=== PATIENT | female | born 1950 | race Hispanic/Latino ===

== ENCOUNTER 2022-06-04 15:56 | Inpatient (IN) | payer OTHER ==
[~2022-06-04] VITALS: Ht 167.6 cm; Wt 77.1 kg
[~2022-06-04 15:56] MED LIST: ASPIRIN CHEW81 MG PO; ATORVASTATIN CA10 MG PO; CEFTRIAXONE1 GM IV; CLOPIDOGREL75 MG PO; FUROSEMIDE40 MG PO; LOPRESSOR25 MG PO; LOSARTAN POTASS25 MG PO; NITROGLYCERIN0.4 MG SL; TOPROL XL50 MG PO; VANCOMYCIN HCL1 GM IV; [UNRECOGNIZED DRUG - REMARK]
[2022-06-04 20:27] VITALS: BP 138/78
[2022-06-04 20:29] VITALS: BP 138/78
[2022-06-04] MEDS: Morphine 4mg INJECTION 4 MG/ML INJ IV PRN (20:49)
[2022-06-04] MEDS: ONDANSETRON HCL INJ 2MG/ML 2ML 2 MG/ML VIAL IV PRN (20:49)
[2022-06-04] MEDS: DEXTROSE 5%/0.45% SOD CHL 1,000 ML IV SCH (20:50)
[2022-06-04 21:34] VITALS: BP 138/78
[2022-06-04] MEDS: ATORVASTATIN 10 MG TAB PO SCH (21:45)
[2022-06-04] MEDS: LOSARTAN POTASSIUM 25 MG TAB PO SCH (21:46)
[2022-06-04] MEDS: METOPROLOL SUCCINATE 50 MG TAB XL PO SCH (21:46)
[2022-06-04 21:53] VITALS: BP 138/78
[2022-06-04] MEDS: HYDROCODONE/APAP 10MG-325MG TAB PO PRN (23:11)
[2022-06-05] VITALS (10 sets, daily range): BP systolic 132–146; BP diastolic 59–77
[2022-06-05 01:35] LABS: BASOPHILS % 0.2 % (0.0-1.0); EOSINOPHILS % 0.1 % (0.0-6.0); HEMATOCRIT 35.7 % (34.2-44.1); HEMOGLOBIN 11.9 g/dL (12.0-16.0); LYMPHOCYTES # (AUTO) 1.7 (1.0-3.2); LYMPHOCYTES % 16.8 % (18.0-39.1); MEAN CORPUSCULAR HEMOGLOBIN 32.4 pg (28-32); MEAN CORPUSCULAR HGB CONC 33.3 g/dL (31-35); MEAN CORPUSCULAR VOLUME 97.3 fL (81-99); MONOCYTES # (AUTO) 0.7 (0.2-0.8); MONOCYTES % 6.9 % (4.4-11.3); NEUTROPHILS # (AUTO) 7.8 (2.1-6.9); NEUTROPHILS % 75.7 % (38.7-80.0); PLATELET COUNT 324 x10e3/uL (140-360); RED BLOOD COUNT 3.67 x10e6/uL (3.6-5.1); RED CELL DISTRIBUTION WIDTH 13.1 % (11.7-14.4)
[2022-06-05 01:47] LABS: INR 1.02; PROTHROMBIN TIME 13.9 seconds (11.9-14.5)
[2022-06-05 01:54] LABS: ALBUMIN 3.4 g/dL (3.5-5.0); ALBUMIN/GLOBULIN RATIO 0.9 (0.8-2.0); ANION GAP 14.3 mmol/L (8-16); CALCIUM 8.9 mg/dL (8.4-10.2); CREATININE, SERUM 0.8 mg/dL (0.57-1.11); POTASSIUM 4.3 mmol/L (3.5-5.1)
[2022-06-05] MEDS: ONDANSETRON HCL INJ 2MG/ML 2ML 2 MG/ML VIAL IV PRN ×2 (02:12→08:12)
[2022-06-05] MEDS: Morphine 4mg INJECTION 4 MG/ML INJ IV PRN ×2 (02:13→08:12)
[2022-06-05] MEDS ORDERED: ASPIRIN81 MG PO (06:52)
[2022-06-05 07:02] LABS: HEMOGLOBIN 11.9 g/dL (12.0-16.0); MEAN CORPUSCULAR HEMOGLOBIN 32.3 pg (28-32); MEAN CORPUSCULAR HGB CONC 33.1 g/dL (31-35); MEAN CORPUSCULAR VOLUME 97.8 fL (81-99); PLATELET COUNT 311 x10e3/uL (140-360); RED BLOOD COUNT 3.68 x10e6/uL (3.6-5.1)
[2022-06-05 07:23] LABS: ANION GAP 15.1 mmol/L (8-16); CALCIUM 8.8 mg/dL (8.4-10.2); CREATININE, SERUM 0.75 mg/dL (0.57-1.11); POTASSIUM 4.1 mmol/L (3.5-5.1)
[2022-06-05 07:38] LABS: INR 0.94; PROTHROMBIN TIME 13.1 seconds (11.9-14.5)
[2022-06-05 07:49] LABS: CLARITY,URINE CLEAR (CLEAR); COLOR,URINE YELLOW (YELLOW); KETONES,URINE TRACE (NEGATIVE); LEUKOCYTE ESTERASE ,URINE NEGATIVE (NEGATIVE); NITRITE,URINE NEGATIVE (NEGATIVE); PROTEIN,URINE DIPSTICK NEGATIVE (NEGATIVE); URINE UROBILINOGEN 0.2 mg/dL (0.2 - 1)
[2022-06-05 07:51] LABS: BACTERIA,URINE FEW /HPF; EPITHELIAL CELLS,URINE RARE /LPF; RBC,URINE 0-5 /HPF (0-5); WBC,URINE (MAN) 0-5 /HPF (0-5)
[2022-06-05] MEDS: DEXTROSE 5%/0.45% SOD CHL 1,000 ML IV SCH (08:13)
[2022-06-05] MEDS: METOPROLOL SUCCINATE 50 MG TAB XL PO SCH ×2 (09:00→21:37)
[2022-06-05 11:03] LABS: LYMPHOCYTES % (MANUAL) 23 % (19-48); MONOCYTES % (MANUAL) 6 % (3.4-9.0); NEUTROPHILS % (MANUAL) 70 % (40-74); PLATELET ESTIMATE ADEQUATE; PLATELET MORPHOLOGY COMMENT NORMAL
[2022-06-05] MEDS ORDERED: SUCCINYLCHOLINE CHLORIDE 20 MG/ML 10ML VIAL ONE (12:31)
[2022-06-05] MEDS ORDERED: PROPOFOL IV EMULSION 10 MG/ML 20 ML VIAL ONE (12:31)
[2022-06-05] MEDS ORDERED: POVIDONE IODINE 0.05% 0.05 % ML PO ONE (12:31)
[2022-06-05] MEDS ORDERED: SEVOFLURANE INHAL SOLN 250 ML PEN BTL ONE (12:31)
[2022-06-05] MEDS ORDERED: KETOROLAC TROMETHAMINE 30 MG/ML VIAL ONE (12:31)
[2022-06-05] MEDS ORDERED: LIDOCAINE HCL 2% LOCAL INJ 5 ML SDV VIAL INJ ONE (12:31)
[2022-06-05] MEDS ORDERED: ONDANSETRON HCL INJ 2MG/ML 2ML 2 MG/ML VIAL ONE (12:31)
[2022-06-05] MEDS ORDERED: MIDAZOLAM HCL 2 MG/2 ML VIAL ONE (13:04)
[2022-06-05] MEDS ORDERED: FENTANYL CITRATE/PF 100MCG/2 ML INJ ONE (13:04)
[2022-06-05] MEDS ORDERED: TRANEXAMIC ACID 10 ML ONE (13:28)
[2022-06-05] MEDS ORDERED: Vancomycin IV 1 GM VIAL ONE (13:28)
[2022-06-05] MEDS ORDERED: Vancomycin IV 0 MG ONE (13:28)
[2022-06-05] MEDS ORDERED: BUPIVACAINE HCL 0.5% INJ 30 ML VIAL INJ ONE (13:51)
[2022-06-05] MEDS ORDERED: ROPIVACAINE 246.25 MG, EPINEPHRINE HCL 1:1000 1ML 0.5 MG, CLONIDINE HCL 0.08 MG, KETORO... INJ ONE ×5 (14:00)
[2022-06-05] MEDS ORDERED: CEFAZOLIN SODIUM 2 GM ONE (14:20)
[2022-06-05] MEDS ORDERED: ACETAMINOPHEN 1000 MG/100 ML 100 ML IV ONE (14:58)
[2022-06-05] MEDS ORDERED: ONDANSETRON HCL INJ 2MG/ML 2ML 2 MG/ML VIAL IV PRN (16:30)
[2022-06-05] MEDS ORDERED: DOCUSATE SODIUM 100 MG CAP PO PRN (16:30)
[2022-06-05] MEDS ORDERED: HYDROCODONE/APAP 5MG-325MG TAB PO PRN (16:30)
[2022-06-05 16:54] LABS: BASOPHILS % 0.2 % (0.0-1.0); EOSINOPHILS # (AUTO) 0.1 (0.0-0.4); EOSINOPHILS % 0.3 % (0.0-6.0); HEMATOCRIT 34.9 % (34.2-44.1); HEMOGLOBIN 11.5 g/dL (12.0-16.0); LYMPHOCYTES # (AUTO) 2.6 (1.0-3.2); LYMPHOCYTES % 12.5 % (18.0-39.1); MEAN CORPUSCULAR HEMOGLOBIN 32.5 pg (28-32); MEAN CORPUSCULAR VOLUME 98.6 fL (81-99); MONOCYTES # (AUTO) 1.1 (0.2-0.8); MONOCYTES % 5.1 % (4.4-11.3); NEUTROPHILS # (AUTO) 16.8 (2.1-6.9); NEUTROPHILS % 81.4 % (38.7-80.0); PLATELET COUNT 306 x10e3/uL (140-360); RED BLOOD COUNT 3.54 x10e6/uL (3.6-5.1); RED CELL DISTRIBUTION WIDTH 12.9 % (11.7-14.4)
[2022-06-05] MEDS: CELECOXIB 100 MG CAP PO SCH (17:00)
[2022-06-05 17:14] LABS: ALBUMIN/GLOBULIN RATIO 0.9 (0.8-2.0); ANION GAP 14.1 mmol/L (8-16); CALCIUM 8.3 mg/dL (8.4-10.2); CREATININE, SERUM 0.74 mg/dL (0.57-1.11); POTASSIUM 4.1 mmol/L (3.5-5.1)
[2022-06-05] MEDS: ACETAMINOPHEN 1000 MG/100 ML IV SCH (18:00)
[2022-06-05] MEDS: LOSARTAN POTASSIUM 25 MG TAB PO SCH (21:38)
[2022-06-05] MEDS: ATORVASTATIN 10 MG TAB PO SCH (21:38)
[2022-06-06] MEDS: ACETAMINOPHEN 1000 MG/100 ML IV SCH ×3 (00:39→12:36)
[2022-06-06 04:00] VITALS: BP 130/65
[2022-06-06] MEDS: DEXTROSE 5%/0.45% SOD CHL 1,000 ML IV SCH ×2 (04:37→17:18)
[2022-06-06 05:20] LABS: BASOPHILS % 0.1 % (0.0-1.0); EOSINOPHILS # (AUTO) 0.1 (0.0-0.4); EOSINOPHILS % 0.7 % (0.0-6.0); HEMATOCRIT 32.8 % (34.2-44.1); HEMOGLOBIN 10.7 g/dL (12.0-16.0); LYMPHOCYTES # (AUTO) 1.4 (1.0-3.2); LYMPHOCYTES % 13.1 % (18.0-39.1); MEAN CORPUSCULAR HEMOGLOBIN 32.5 pg (28-32); MEAN CORPUSCULAR HGB CONC 32.6 g/dL (31-35); MEAN CORPUSCULAR VOLUME 99.7 fL (81-99); MONOCYTES % 9.6 % (4.4-11.3); NEUTROPHILS # (AUTO) 8.3 (2.1-6.9); NEUTROPHILS % 75.9 % (38.7-80.0); PLATELET COUNT 290 x10e3/uL (140-360); RED BLOOD COUNT 3.29 x10e6/uL (3.6-5.1); RED CELL DISTRIBUTION WIDTH 12.8 % (11.7-14.4)
[2022-06-06 05:50] LABS: ANION GAP 12.3 mmol/L (8-16); CREATININE, SERUM 0.7 mg/dL (0.57-1.11); POTASSIUM 4.3 mmol/L (3.5-5.1)
[2022-06-06] MEDS: HYDROCODONE/APAP 10MG-325MG TAB PO PRN ×2 (08:21→16:41)
[2022-06-06] MEDS: CELECOXIB 100 MG CAP PO SCH ×2 (08:22→16:41)
[2022-06-06] MEDS: METOPROLOL SUCCINATE 50 MG TAB XL PO SCH ×2 (08:22→20:54)
[2022-06-06 08:26] VITALS: BP 122/67
[2022-06-06 12:03] VITALS: BP 121/59
[2022-06-06] MEDS: ONDANSETRON HCL INJ 2MG/ML 2ML 2 MG/ML VIAL IV PRN (13:18)
[2022-06-06] MEDS: Morphine 4mg INJECTION 4 MG/ML INJ IV PRN (13:19)
[2022-06-06] MEDS ORDERED: ACETAMINOPHEN 1000 MG/100 ML IV PRN (16:30)
[2022-06-06 20:04] VITALS: BP 128/69
[2022-06-06 20:05] VITALS: BP 128/69
[2022-06-06] MEDS: ATORVASTATIN 10 MG TAB PO SCH (20:53)
[2022-06-06] MEDS: LOSARTAN POTASSIUM 25 MG TAB PO SCH (20:53)
[2022-06-07 00:25] VITALS: BP 137/61
[2022-06-07 04:00] VITALS: BP 148/67
[2022-06-07 05:36] LABS: BASOPHILS % 0.2 % (0.0-1.0); EOSINOPHILS # (AUTO) 0.1 (0.0-0.4); HEMATOCRIT 32.7 % (34.2-44.1); HEMOGLOBIN 10.5 g/dL (12.0-16.0); LYMPHOCYTES # (AUTO) 1.6 (1.0-3.2); LYMPHOCYTES % 15.4 % (18.0-39.1); MEAN CORPUSCULAR HGB CONC 32.1 g/dL (31-35); MEAN CORPUSCULAR VOLUME 102.8 fL (81-99); NEUTROPHILS # (AUTO) 7.6 (2.1-6.9); NEUTROPHILS % 73.1 % (38.7-80.0); PLATELET COUNT 297 x10e3/uL (140-360); RED BLOOD COUNT 3.18 x10e6/uL (3.6-5.1); RED CELL DISTRIBUTION WIDTH 12.8 % (11.7-14.4)
[2022-06-07 06:03] LABS: ANION GAP 12.2 mmol/L (8-16); CALCIUM 8.5 mg/dL (8.4-10.2); CREATININE, SERUM 0.73 mg/dL (0.57-1.11); POTASSIUM 4.2 mmol/L (3.5-5.1)
[2022-06-07] MEDS: DEXTROSE 5%/0.45% SOD CHL 1,000 ML IV SCH (07:40)
[2022-06-07 07:50] VITALS: BP 129/57
[2022-06-07] MEDS: METOPROLOL SUCCINATE 50 MG TAB XL PO SCH (08:51)
[2022-06-07] MEDS: CELECOXIB 100 MG CAP PO SCH (08:51)
[2022-06-07] MEDS ORDERED: ASPIRIN 81 MG CHEW TAB PO SCH (09:00)
[2022-06-07 09:01] VITALS: BP 129/57
[2022-06-07] MEDS ORDERED: POLYETHYLENE GLYCOL 3350 17 GM PACK PO ONE (09:45)
[2022-06-07] MEDS ORDERED: MIRALAX17 GM PO (10:45)
[2022-06-07] MEDS ORDERED: CELEBREX100 MG PO (10:45)
[2022-06-07] MEDS ORDERED: ONDANSETRON ODT4 MG PO (10:45)
[2022-06-07] MEDS ORDERED: Docusate Sodium PO (10:45)
[2022-06-07] MEDS ORDERED: ACETAMINOPHEN-1 EAC3 PO (10:45)
[2022-06-07 11:47] VITALS: BP 118/67
[2022-06-07] MEDS ORDERED: ONDANSETRON HCL 4 MG ORAL DISINTEGRATING TAB PO PRN (12:30)
[2022-06-07] MEDS: DOCUSATE SODIUM 100 MG CAP PO SCH ×2 (13:19→15:00)
[2022-06-07 16:09] VITALS: BP 143/74
[2022-06-07] MEDS ORDERED: POLYETHYLENE GLYCOL 3350 17 GM PACK PO SCH (17:00)
== END 2022-06-07 16:22 | disposition home or self-care (01) | DRG 522 ==
LOC: MED/SURG 15:56
PROVIDERS: ADMIT Internal Medicine; ATTEND Internal Medicine
PROC: 0SRR0JZ Replacement of Right Hip Joint, Femoral Surface with Synthetic Substitute, Open Approach (ICD-10-PCS; principal; 2022-06-05 14:29)
DX: S72.031A Displaced midcervical fracture of right femur, initial encounter for closed fracture (principal); I10 Essential (primary) hypertension; W01.0XXA Fall on same level from slipping, tripping and stumbling without subsequent striking against object, initial encounter; R33.9 Retention of urine, unspecified; E78.5 Hyperlipidemia, unspecified; I27.20 Pulmonary hypertension, unspecified; I08.2 Rheumatic disorders of both aortic and tricuspid valves; Z95.810 Presence of automatic (implantable) cardiac defibrillator; Z79.82 Long term (current) use of aspirin
CPT/HCPCS: 36415; 80048; 80053; 81001; 85007; 85025; 85027; 85610; 85730; 86850; 86900; 93005; 93306; 94799; 96361; C1713; C1776; J0171; J0330; J1885; J2001; J2250; J2270; J2405; J2795; J3370

== ENCOUNTER → 2024-04-20 | Outpatient (RCR) | payer MEDICARE ==
[~2024-04-20] MED LIST changes: +ACETAMINOPHEN-1 EAC3 PO; +ASPIRIN81 MG PO; +CELEBREX100 MG PO; +Docusate Sodium PO; +MIRALAX17 GM PO; +ONDANSETRON ODT4 MG PO
== END ==
LOC: PT 04-10 11:12
PROVIDERS: ATTEND Orthopaedic Surgery
DX: T84.84XA Pain due to internal orthopedic prosthetic devices, implants and grafts, initial encounter (principal); M25.551 Pain in right hip

== ENCOUNTER 2024-04-23 07:19 | Outpatient (RCR) | payer MEDICARE | END 2024-05-21 | LOC: PT 07:19 | PROVIDERS: ATTEND Orthopaedic Surgery | DX: T84.84XA Pain due to internal orthopedic prosthetic devices, implants and grafts, initial encounter (principal); M25.551 Pain in right hip ==